=== PATIENT | female | born 1985 | race Caucasian/White ===

== ENCOUNTER 2023-08-09 09:53 | Inpatient (IN) | payer MEDICAID, OTHER, SELFPAY ==
[2023-08-08 11:36] LABS: Hematocrit 37.7 % (34.9-44.5); Platelet Count 168 10x3/uL (150-450)
[2023-08-08 12:14] LABS: HBsAg Index 0.21 S/CO (0-0.99); HIV (1/2) Antibody/Antigen Non-Reactive (NonReactive); HIV 1/2 INDEX 0.16 S/CO (<1.00); Hep B Surf Ag Non-Reactive S/CO (NonReactive)
[2023-08-08 12:15] LABS: Syphilis Antibody Nonreactive (Nonreactive); Syphilis Antibody Index 0.05 S/CO (<1.00 Non-Reactive)
[2023-08-09] MEDS ORDERED: diphenhydrAMINE 50 MG/ML VIAL IVP PRN (10:46)
[2023-08-09] MEDS ORDERED: Promethazine HCl 25 MG/ML VIAL IM PRN ×2 (10:46→13:49)
[2023-08-09] MEDS ORDERED: Moisturizing Cream (Eucerin) 113 GM JAR TOP PRN (10:46)
[2023-08-09] MEDS ORDERED: Ondansetron PF 4 MG/2 ML Vial IVP PRN ×3 (10:46→13:49)
[2023-08-09] MEDS ORDERED: Naloxone HCl 0.4 mg/ml Vial IVP PRN ×2 (10:46)
[2023-08-09] MEDS ORDERED: fentaNYL 50 mcg/mL 1 mL Vial SLOW IVP PRN (10:46)
[2023-08-09] MEDS ORDERED: Meperidine HCl/PF 25 MG (1 mL) VIAL SLOW IVP PRN (10:46)
[2023-08-09] MEDS ORDERED: Naloxone HCl 0.4 mg/ml Vial IV PRN (10:46)
[2023-08-09] MEDS ORDERED: Communication Order-Pharmacy FS SCH (11:00)
[2023-08-09] MEDS ORDERED: Ketorolac Tromethamine 30 MG (1 mL) VIAL IVP SCH (11:00)
[2023-08-09] MEDS ORDERED: Famotidine/PF 20 mg/2ml Vial SLOW IVP PRN (11:19)
[2023-08-09] MEDS ORDERED: Bicitra 30 ML UDCUP PO PRN (11:19)
[2023-08-09] MEDS ORDERED: CEFAZOLIN 2 GM in Sodium Chloride 0.9% 100 ML IVPB SCH (11:45)
[2023-08-09] MEDS ORDERED: Carboprost 250 MCG/ML AMP IM PRN (11:46)
[2023-08-09] MEDS ORDERED: Methylergonovine 0.2 MG/ML VIAL IM PRN (11:46)
[2023-08-09] MEDS ORDERED: Diphenoxylate HCl/Atropine Tablet PO PRN (11:46)
[2023-08-09] MEDS ORDERED: hydrALAZINE 20 MG/ML VIAL SLOW IVP PRN ×2 (11:46→13:49)
[2023-08-09] MEDS ORDERED: Acetaminophen 500 MG TAB PO PRN (11:46)
[2023-08-09] MEDS ORDERED: Tranexamic Acid 1,000 MG/10 ML VIAL IVP PRN (11:46)
[2023-08-09] MEDS ORDERED: Misoprostol 200 MCG TAB PR PRN (11:46)
[2023-08-09] MEDS ORDERED: Lactated Ringer's 1,000 ML IV SCH (12:00)
[2023-08-09] MEDS ORDERED: Oxytocin 30 units/NS 500 ML 500 ML IV SCH (12:00)
[2023-08-09 13:48] VITALS: BMI 32.0
[2023-08-09] MEDS ORDERED: Acetaminophen 325 MG TAB PO PRN (13:49)
[2023-08-09] MEDS ORDERED: Boostrix 0.5 ML (Tdap) VIAL (>/=7 yrs of age) IM ONE (13:49)
[2023-08-09] MEDS ORDERED: Lanolin Ointment 7 GM TUBE TOP PRN (13:55)
[2023-08-09] MEDS ORDERED: Bisacodyl 10 MG SUPP PR PRN (13:55)
[2023-08-09] MEDS: Ketorolac Tromethamine 30 MG (1 mL) VIAL IVP PRN (15:15)
[2023-08-09] MEDS: Morphine PF 10 MG/10 ML VIAL ONE (20:38)
[2023-08-09] MEDS: ePHEDrine Sulfate 50 MG/10 ML VIAL ONE (20:38)
[2023-08-09] MEDS: Phenylephrine 40 MG/NS 250 ML 250 ML ONE (20:38)
[2023-08-09] MEDS: Famotidine/PF 20 mg/2ml Vial ONE (20:38)
[2023-08-09] MEDS: PHENYLEPHRINE-NS 100 MCG/ML 10 ML SYRINGE ONE ×2 (20:38→20:39)
[2023-08-09] MEDS: Ondansetron PF 4 MG/2 ML Vial ONE (20:38)
[2023-08-09] MEDS: Oxytocin 10 UNITS/ML VIAL ONE ×2 (20:38)
[2023-08-09] MEDS: Dexmedetomidine 200 MCG/2 ML VIAL ONE (20:38)
[2023-08-09] MEDS: Docusate 100 MG CAP PO SCH (20:40)
[2023-08-09] MEDS: Ferrous Sulfate 325 MG TAB PO SCH (20:40)
[2023-08-10 09:30] LABS: #Basophils 0.02 10x3/uL (0.0-0.2); #Eosinphils 0.16 10x3/uL (0.0-0.5); #Monocytes 0.46 10x3/uL (0.0-1.1); #Neutrophils 7.45 10x3/uL (1.5-8.4); %Basophils 0.2 % (0.0-2.0); %Eosinophils 1.8 % (0.0-6.0); %Lymphocytes 11.2 % (18.0-47.0); %Neutrophils 81.5 % (40.0-75.0); Hematocrit 36.4 % (34.9-44.5); Hemoglobin 12.8 g/dL (12.0-15.5); Mean Corpuscular HGB CONC 35.2 g/dL (32.0-36.0); Mean Corpuscular Hemoglobin 32.7 pg (27.0-33.0); Mean Corpuscular Volume 92.9 fL (81.6-98.3); Mean Platelet Volume 10.8 fL (7.4-10.4); Platelet Count 150 10x3/uL (150-450); RBC Distribution Width 13.3 % (11.5-14.5); Red Blood Cell (RBC) Count 3.92 10x6/uL (3.90-5.03); White Blood Cell (WBC) Count 9.1 10x3/uL (3.5-10.5)
[2023-08-10] MEDS: Prenatal Vitamin 1 TAB PO SCH (14:04)
[2023-08-10] MEDS: Ibuprofen 800 MG TAB PO SCH (14:05)
[2023-08-10] MEDS: HYDROcodone/Acetaminophen 5/325 mg Tablet PO PRN (15:05)
[2023-08-10] MEDS: Simethicone Chewable 80 MG TAB PO PRN (20:20)
[2023-08-11 11:14] VITALS: BP 98/54; TEMP 98.4
== END 2023-08-11 12:45 | disposition home or self-care (01) | DRG 785 ==
LOC: CSHLD 09:53 → CSHPP 15:46
PROVIDERS: ADMIT Family Medicine; ATTEND Family Medicine
PROC: 10D00Z1 Extraction of Products of Conception, Low, Open Approach (ICD-10-PCS; principal; 2023-08-09)
PROC: 0UB70ZZ Excision of Bilateral Fallopian Tubes, Open Approach (ICD-10-PCS; 2023-08-09)
DX: O34.211 Maternal care for low transverse scar from previous cesarean delivery (principal); O24.429 Gestational diabetes mellitus in childbirth, unspecified control; O99.02 Anemia complicating childbirth; D64.9 Anemia, unspecified; Z3A.39 39 weeks gestation of pregnancy; Z37.0 Single live birth; E66.9 Obesity, unspecified; O99.214 Obesity complicating childbirth; Z30.2 Encounter for sterilization
CPT/HCPCS: 36416; 85014; 85018; 85025; 85049; 86780; 86850; 86900; 86901; 87340; 87389; 88302; J1885; J2274; J2405; J2590; S0028